=== PATIENT | male | born 2005 | race Caucasian/White ===

== ENCOUNTER 2023-01-01 14:09 | Emergency (ER) | payer OTHER, SELFPAY ==
[2023-01-01 14:21] VITALS: BP 136/78; PULSE 89; RESP 16; TEMP 37; O2SAT 100
--- NOTE | 2023-01-01 14:27 | ED.EAR ---
HPI - Ear Problem General Chief complaint: Ear Stated complaint: Ear infection Source: patient Mode of arrival: ambulatory Limitations: no limitations History of Present Illness HPI Narrative: 17-year-old male presented for complaint of left ear pain for 2 weeks. States at the onset he also had sore throat, and was treated for strep and ear infection. Completed amoxicillin yesterday. States the ear pain is constant and unimproved, and endorses muffled hearing. Denies tinnitus, dizziness, n/v/d/f/c. Not taking anything else for symptoms. MD Complaint: ear pain Related Data Allergies Allergy/AdvReac Type Severity Reaction Status Date / Time No Known Allergies Allergy Verified 01/01/23 14:19 Review of Systems Review of Systems: CONSTITUTIONAL: Denies malaise, chills, or fever. EYES: Denies visual changes, redness, or discharge. ENT: reports mild rhinorrhea, congestion, left ear pain CARDIOVASCULAR: Denies chest pain, palpitations, or edema. RESPIRATORY: Denies cough or dyspnea. GASTROINTESTINAL: Denies abdominal pain, nausea, vomiting, diarrhea SKIN: Denies rash or itching. MUSCULOSKELETAL: Denies myalgia. NEUROLOGIC: Denies headache. All systems reviewed & are unremarkable except as noted in HPI and below PMFSH Past Medical History Medical History (Updated 01/01/23 @ 14:42 by Bushra Sullivan APRN) No pertinent past medical history Comments At time of signature, agree with nursing past medical, surgical, social and family history. There is no relevant family history pertinent to the presenting complaint Exam Narrative: GENERAL: Well-appearing, and in no acute distress. HEAD: Normocephalic EYES: PERRLA, conjunctivae clear ENT: Nares clear. Mucous membranes moist. TMs pearly mixon with dull light reflex bilaterally; no tragal tenderness. Oropharynx not erythematous without lesions. no drooling, no hoarseness, no trismus, uvula midline. NECK: Supple. No lymphadenopathy CHEST: Clear to auscultation, breath sounds equal. No wheezing, rhonchi, rales, or stridor. No respiratory distress, speaks in full sentences. HEART: Regular rate and rhythm. No murmur heard. SKIN: Warm, dry, no rash. NEURO: Alert and oriented x3. PSYCH: Normal mood and affect Course Course Emergency Course: Patient is aware of diagnosis, understands and agrees to treatment plan. Anticipatory guidance given. Patient agrees to follow-up as directed and is aware of reasons to seek care at the emergency department. Portions of this record may have been created with voice recognition software Level of Care: Express Care Visit Vital Signs Vital signs: Vital Signs Temperature 98.6 F 01/01/23 14:21 Pulse Rate 89 01/01/23 14:21 Respiratory Rate 16 01/01/23 14:21 Blood Pressure 136/78 01/01/23 14:21 Pulse Oximetry 100 01/01/23 14:21 Temperature 98.6 F 01/01/23 14:21 Pulse Rate 89 01/01/23 14:21 Respiratory Rate 16 01/01/23 14:21 Blood Pressure 136/78 01/01/23 14:21 Pulse Oximetry 100 01/01/23 14:21 Reviewed Medical Decision Making MDM Narrative Medical decision making narrative: Discussed physical exam findings s/s most consistent with ETD. Advised supportive measures and if no improvement he can start Augmentin. Reviewed signs/symptoms to go to the ER. Patient is appropriate for outpatient treatment and follow-up. Provided ENT referral. Differential Diagnosis Differential Diagnosis: Coronavirus, strep pharyngitis, allergic rhinitis, upper respiratory tract infection, sinusitis, rhinosinusitis, nasopharyngitis, viral pharyngitis, otitis media, otitis externa, eustachian tube dysfunction, foreign body, cerumen impaction. Vital Signs Vital Signs: Vital Signs Temperature 98.6 F 01/01/23 14:21 Pulse Rate 89 01/01/23 14:21 Respiratory Rate 16 01/01/23 14:21 Blood Pressure 136/78 01/01/23 14:21 Pulse Oximetry 100 01/01/23 14:21 Temperature 98.6 F 01/01/23 14:21 Pulse Rate
== END 2023-01-01 14:42 | disposition home or self-care (01) ==
PROVIDERS: Emergency Provider Nurse Practitioner Family
DX: H92.02 Otalgia, left ear (principal)
CPT/HCPCS: 99213; G0463